=== PATIENT | female | born 1990 | race Caucasian/White ===

== ENCOUNTER 2019-09-06 17:32 | Emergency (ER) | payer OTHER ==
[~2019-09-06] VITALS: Ht 167.6 cm; Wt 91.2 kg
[2019-09-06 17:33] VITALS: BP 124/81; Ht 167.6 cm; Wt 91.2 kg
== END 2019-09-06 17:59 | disposition left against medical advice (07) ==
LOC: ED 17:32
DX: Z53.21 Procedure and treatment not carried out due to patient leaving prior to being seen by health care provider (principal)

== ENCOUNTER 2020-04-05 12:45 | Emergency (ER) | payer OTHER ==
[~2020-04-05] VITALS: Ht 167.6 cm; Wt 94.8 kg
[2020-04-05 14:16] VITALS: BP 132/87; Ht 167.6 cm; Wt 94.8 kg
[2020-04-05 17:39] LABS: BASOPHIL % 0.9 % (0.2-1.3); PLATELET COUNT 345 x10^3mcL (179-408); RED CELL DISTRIBUTION WIDTH 12.3 % (12.3-17.7)
[2020-04-05 19:46] LABS: UA SPECIFIC GRAVITY >=1.030 (1.005-1.035); microscopic required? YES; urine erythrocyte 3+ (NEGATIVE)
== END 2020-04-05 18:57 | disposition home or self-care (01) ==
LOC: ED 12:45
PROVIDERS: Emergency Medicine
DX: O03.9 Complete or unspecified spontaneous abortion without complication (principal); M54.5 Low back pain